=== PATIENT | male | born 1985 | race Caucasian/White ===

== ENCOUNTER 2018-12-01 10:55 | Emergency (ER) | payer BC, OTHER ==
[~2018-12-01] VITALS: Ht 165.1 cm; Wt 68.0 kg
[2018-12-01 11:03] VITALS: BP 145/74
--- NOTE | 2018-12-01 12:07 | NUR ---
PT left without being seen, spoke with PMD who suggested that he did not need to be seen
== END 2018-12-01 12:08 | disposition left against medical advice (07) ==
LOC: ER 10:57
DX: Z53.21 Procedure and treatment not carried out due to patient leaving prior to being seen by health care provider (principal)

== ENCOUNTER 2019-10-23 01:14 | Emergency (ER) | payer BC ==
[~2019-10-23] VITALS: Ht 175.3 cm; Wt 95.3 kg
[2019-10-23 01:14] VITALS: BP 139/90
[2019-10-23] MEDS ORDERED: KETOROLAC TROMETHAMINE INJ 60 MG/2 ML VIAL IM ONE ×2 (01:42→02:00)
== END 2019-10-23 01:49 | disposition home or self-care (01) ==
LOC: ER 01:19
DX: J02.9 Acute pharyngitis, unspecified (principal); F17.200 Nicotine dependence, unspecified, uncomplicated
CPT/HCPCS: 96372; 99283; J1885

== ENCOUNTER 2021-01-23 13:14 | Emergency (ER) | payer BC ==
[~2021-01-23] VITALS: Ht 172.7 cm; Wt 93.9 kg
--- NOTE | 2021-01-23 13:14 | NUR ---
PT BIB SELF C/O PALPITATIONS STARTED 10 MINS [employer]LECT[employer]. 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 WILL CONTINUE TO MONITOR.
--- NOTE | 2021-01-23 13:38 | NUR ---
PT SEEN AND EXAMINED BY .
--- NOTE | 2021-01-23 13:40 | NUR ---
ER PHLEB AT BEDSIDE FOR BLOOD DRAW.
[2021-01-23 13:47] LABS: BASOPHILS # (AUTO) 0.1 /CMM (0.0-0.2); EOSINOPHILS % (AUTO) 2.7 % (0.0-6.0); HEMATOCRIT 39 % (39-51); LYMPHOCYTES # (AUTO) 2.5 /CMM (0.8-4.8); LYMPHOCYTES % (AUTO) 33.6 % (20.0-44.0); MEAN CORPUSCULAR HGB CONC 33 g/dl (31.0-36.0); MEAN CORPUSCULAR VOLUME 90 fL (80-96); MONOCYTES # (AUTO) 0.6 /CMM (0.1-1.30); NEUTROPHILS # (AUTO) 4.1 /CMM (1.8-8.9); NEUTROPHILS % (AUTO) 54.7 % (43.0-81.0); PLATELET COUNT (AUTO) 219 /CMM (150-450); RED BLOOD CELL COUNT(AUTO) 4.37 MIL/uL (4.5-6.0); WHITE BLOOD COUNT (AUTO) 7.5 K/uL (4.3-11.0)
--- NOTE | 2021-01-23 13:48 | NUR ---
URINE SPECIMEN COLLECTED AND SENT TO LAB.
[2021-01-23 14:03] LABS: ALANINE AMINOTRANSFERASE 39 U/L (12-78); ALBUMIN 3.6 g/dL (3.4-5.0); ALCOHOL, BLOOD < 3 mg/dL (0-0); ALKALINE PHOSPHATASE 63 U/L (46-116); ASPARTATE AMINOTRANSFERASE 23 U/L (15-37); BILIRUBIN,TOTAL 0.1 mg/dL (0.2-1.0); CALCIUM, SERUM 8.1 mg/dL (8.5-10.1); CARBON DIOXIDE 29 mmol/L (21-32); CHLORIDE 105 mmol/L (98-107); CREATININE 0.9 mg/dL (0.6-1.3); GLUCOSE 109 mg/dL (74-106); POTASSIUM 4.4 mmol/L (3.5-5.1); SODIUM SERUM 140 mmol/L (136-145); TOTAL PROTEIN, SERUM 6.9 g/dL (6.4-8.2); UREA NITROGEN, BLOOD 14 mg/dL (7-18)
--- NOTE | 2021-01-23 15:20 | NUR ---
Patient discharged to home in stable condition. Written and verbal after care instructions given. Patient verbalizes understanding of instruction.
[2021-01-23 15:21] VITALS: BP 127/81
== END 2021-01-23 15:23 | disposition home or self-care (01) ==
LOC: ER 13:21
DX: R00.2 Palpitations (principal); F12.90 Cannabis use, unspecified, uncomplicated
CPT/HCPCS: 36415; 71045-TC; 80048-TC; 80076-TC; 83735-TC; 84484-TC; 85025-TC; G0480

== ENCOUNTER 2021-12-19 11:53 | Emergency (ER) | payer BC ==
[~2021-12-19] VITALS: Ht 175.3 cm; Wt 90.7 kg
[2021-12-19 12:01] VITALS: BP 123/77
--- NOTE | 2021-12-19 12:04 | NUR ---
nasal /sinus congestion x 2 days; + cough he has COVID home kit; tested himself - negative per patient report
--- NOTE | 2021-12-19 12:12 | NUR ---
Patient discharged to home in stable condition. Written and verbal after care instructions given. Patient verbalizes understanding of instruction.
== END 2021-12-19 12:13 | disposition home or self-care (01) ==
LOC: ER 11:53
DX: R51.9 Headache, unspecified (principal)

== ENCOUNTER 2023-02-08 18:18 | Emergency (ER) | payer BC ==
[~2023-02-08] VITALS: Ht 175.3 cm; Wt 95.3 kg
--- NOTE | 2023-02-08 19:00 | NUR ---
Patient AOx4 able to express his concerns. Discussed plan of care with pt, verbalized agreement.
--- NOTE | 2023-02-08 19:08 | NUR ---
Blood collected and sent to lab
[2023-02-08] MEDS ORDERED: KETOROLAC TROMETHAMINE INJ 30 MG/ML VIAL ONE (19:10)
[2023-02-08] MEDS ORDERED: diphenhydrAMINE HCL 50 MG/ML VIAL ONE ×2 (19:10→20:43)
[2023-02-08] MEDS ORDERED: ONDANSETRON HCL/PF 4 MG/2 ML VIAL ONE (19:10)
--- NOTE | 2023-02-08 19:27 | NUR ---
Handoff report given to Saloni [facility] for continuity of care.
[2023-02-08] MEDS ORDERED: diphenhydrAMINE HCL 50 MG/ML VIAL IV ONE ×2 (19:30→20:30)
[2023-02-08] MEDS ORDERED: KETOROLAC TROMETHAMINE INJ 30 MG/ML VIAL IV ONE (19:30)
[2023-02-08] MEDS ORDERED: IV NS 0.9% 1,000 ML BAG IV ONE (19:30)
[2023-02-08] MEDS ORDERED: ONDANSETRON HCL/PF 4 MG/2 ML VIAL IVP ONE (19:30)
[2023-02-08] MEDS ORDERED: DEXAMETHASONE SOD PHOSPHATE 10 MG/ML VIAL ONE (20:44)
[2023-02-08] MEDS ORDERED: NAPR500T6 PO (20:46)
[2023-02-08] MEDS ORDERED: DEXAMETHASONE SOD PHOSPHATE 10 MG/ML VIAL IV ONE (21:00)
--- NOTE | 2023-02-08 21:21 | NUR ---
Patient discharged to home in stable condition. Written and verbal after care instructions given. Patient verbalizes understanding of instruction.IV removed. Catheter intact and site benign. Pressure and 4x4 applied to site. No bleeding noted.
[2023-02-08 21:46] VITALS: BP 133/73
== END 2023-02-08 21:21 | disposition home or self-care (01) ==
LOC: ER 18:31
DX: G43.909 Migraine, unspecified, not intractable, without status migrainosus (principal); F17.200 Nicotine dependence, unspecified, uncomplicated; Z79.899 Other long term (current) drug therapy
CPT/HCPCS: 99285; 96374; 96375; 96361; 96376; J1100; J1200 ×2; J1885; J2405; J7030

== ENCOUNTER 2023-12-21 21:21 | Emergency (ER) | payer BC ==
[~2023-12-21] VITALS: Ht 175.3 cm; Wt 90.7 kg
[~2023-12-21 21:21] MED LIST: NAPR500T6 PO
[2023-12-21 22:16] VITALS: TEMP 97.9
[2023-12-21 22:40] LABS: BASOPHILS # (AUTO) 0.1 K/uL (0.0-0.2); BASOPHILS % (AUTO) 0.6 % (0.0-2.0); EOSINOPHILS # (AUTO) 0.3 K/uL (0.0-0.7); EOSINOPHILS % (AUTO) 3.3 % (0.0-6.0); HEMATOCRIT 42 % (39-51); HEMOGLOBIN 13.9 g/dL (13.5-17.5); LYMPHOCYTES # (AUTO) 3.9 K/uL (0.8-4.8); LYMPHOCYTES % (AUTO) 43.7 % (20.0-44.0); MEAN CORPUSCULAR HEMOGLOBIN 30 PG (26.0-33.0); MEAN CORPUSCULAR HGB CONC 33 g/dl (31.0-36.0); MEAN CORPUSCULAR VOLUME 90 fL (80-96); MONOCYTES # (AUTO) 0.7 K/uL (0.1-1.30); MONOCYTES % (AUTO) 8.2 % (2.0-12.0); NEUTROPHILS # (AUTO) 3.9 K/uL (1.8-8.9); NEUTROPHILS % (AUTO) 44.2 % (43.0-81.0); PLATELET COUNT (AUTO) 228 K/uL (150-450); RED BLOOD CELL COUNT(AUTO) 4.69 MIL/uL (4.5-6.0); RED CELL DISTRIBUTION WIDTH 14.9 % (11.5-15.0); WHITE BLOOD COUNT (AUTO) 8.9 K/uL (4.3-11.0)
[2023-12-21 22:50] LABS: CALCIUM, SERUM 8.9 mg/dL (8.5-10.1); CARBON DIOXIDE 29 mmol/L (21-32); CHLORIDE 103 mmol/L (98-107); CREATININE 0.9 mg/dL (0.6-1.3); GLUCOSE 115 mg/dL (74-106); POTASSIUM 3.7 mmol/L (3.5-5.1); SODIUM SERUM 139 mmol/L (136-145); UREA NITROGEN, BLOOD 18 mg/dL (7-18)
[2023-12-21 22:54] LABS: D-DIMER < 0.19 mg/L(FEU (0.17-0.50); INR 1.02 (0.91-1.10); PARTIAL THROMBOPLASTIN TIME 30.3 SEC (24.3-34.3); PROTHROMBIN TIME 10.8 SECS (9.2-11.1)
[2023-12-21 22:55] LABS: ALANINE AMINOTRANSFERASE 36 U/L (12-78); ALBUMIN 3.9 g/dL (3.4-5.0); ALKALINE PHOSPHATASE 74 U/L (46-116); ASPARTATE AMINOTRANSFERASE 16 U/L (15-37); BILIRUBIN,TOTAL 0.1 mg/dL (0.2-1.0); TOTAL PROTEIN, SERUM 7.6 g/dL (6.4-8.2)
[2023-12-22 01:04] VITALS: BP 132/81; O2SAT 100
== END 2023-12-22 01:06 | disposition home or self-care (01) ==
LOC: ER 21:29
DX: R07.9 Chest pain, unspecified (principal)
CPT/HCPCS: 36415; 71045-TC; 80048-TC; 80076-TC; 84484-TC; 85025-TC; 85378-TC; 85730-TC